=== PATIENT | male | born 1960 | race Caucasian/White ===

== ENCOUNTER 2017-09-18 15:59 | Emergency (ER) | payer OTHER ==
[~2017-09-18] VITALS: Ht 185.4 cm; Wt 136.1 kg
[~2017-09-18 15:59] MED LIST: BACLOFEN20 MG PO; FLO4 PO; KEFLEX500 MG PO; LAC PO; METHADONE HCL5 MG PO; MOTRIN800 MG; OMEPRAZOLE DR20 M1 PO; OXYBUTYNIN5 M1 PO
[2017-09-18 16:11] VITALS: Ht 185.4 cm; Wt 136.1 kg
[2017-09-18 17:27] VITALS: BP 116/42
== END 2017-09-18 17:27 | disposition home or self-care (01) ==
LOC: ED 15:59
DX: S24.102A Unspecified injury at T2-T6 level of thoracic spinal cord, initial encounter (principal); G82.20 Paraplegia, unspecified; G89.29 Other chronic pain; M54.9 Dorsalgia, unspecified; R19.7 Diarrhea, unspecified; X58.XXXA Exposure to other specified factors, initial encounter; Y93.89 Activity, other specified; Y92.89 Other specified places as the place of occurrence of the external cause; Y99.8 Other external cause status
CPT/HCPCS: J1885; J2270; Q0162

== ENCOUNTER 2018-02-17 13:13 | Emergency (ER) | payer OTHER ==
[2018-02-17 16:56] LABS: BASOPHIL % 0.2 % (0-2); PLATELET COUNT 252 x10^3mcL (130-400); RED CELL DISTRIBUTION WIDTH 13.6 % (11.5-14.5)
[2018-02-17 17:05] LABS: CALCIUM 8.1 mg/dL (8.5-10.1); CARBON DIOXIDE 26.2 mmol/L (21-32); CHLORIDE SERUM 101 mmol/L (98-107); CREATININE SERUM 0.9 mg/dL (0.7-1.3); GFR1 > 60 mL/min; GLUCOSE SERUM 94 mg/dL (74-106); POTASSIUM SERUM 3.8 mmol/L (3.5-5.1); SODIUM SERUM 136 mmol/L (136-145)
[2018-02-17 17:11] LABS: ALBUMIN 3.4 g/dL (3.4-5.0); ALKALINE PHOSPHATASE 109 U/L (46-116); ALT/SGPT 30 U/L (16-63); AST/SGOT 23 U/L (15-37); BILIRUBIN TOTAL 0.34 mg/dL (0.20-1.00); TOTAL PROTEIN, SERUM 7.7 g/dL (6.4-8.2)
[2018-02-17 20:13] VITALS: BP 147/82
== END 2018-02-17 20:13 | disposition home or self-care (01) ==
LOC: ED 13:13
PROVIDERS: Emergency Medicine
DX: J10.1 Influenza due to other identified influenza virus with other respiratory manifestations (principal); G82.20 Paraplegia, unspecified; G89.29 Other chronic pain
CPT/HCPCS: 83880; 87804; J7613; J7644; Q0092

== ENCOUNTER 2018-02-25 10:47 | Emergency (ER) | payer OTHER ==
[~2018-02-25] VITALS: Ht 185.4 cm; Wt 124.7 kg
[2018-02-25 10:55] VITALS: Ht 185.4 cm; Wt 124.7 kg
[2018-02-25 13:49] VITALS: BP 123/71
== END 2018-02-25 13:49 | disposition home or self-care (01) ==
LOC: ED 10:47
DX: J40 Bronchitis, not specified as acute or chronic (principal); M54.9 Dorsalgia, unspecified

== ENCOUNTER 2018-07-07 09:09 | Inpatient (IN) | payer OTHER ==
[~2018-07-07] VITALS: Ht 185.4 cm; Wt 113.4 kg
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
[2018-07-07 09:56] LABS: PLATELET COUNT 314 x10^3mcL (130-400); RED CELL DISTRIBUTION WIDTH 14.3 % (11.5-14.5)
[2018-07-07 10:07] LABS: CALCIUM 8.3 mg/dL (8.5-10.1); CARBON DIOXIDE 22.1 mmol/L (21-32); CHLORIDE SERUM 103 mmol/L (98-107); CREATININE SERUM 0.9 mg/dL (0.7-1.3); GFR1 > 60 mL/min; GLUCOSE SERUM 147 mg/dL (74-106); POTASSIUM SERUM 3.8 mmol/L (3.5-5.1); SODIUM SERUM 137 mmol/L (136-145)
[2018-07-07 10:13] LABS: ALBUMIN 3.5 g/dL (3.4-5.0); ALKALINE PHOSPHATASE 113 U/L (46-116); ALT/SGPT 24 U/L (16-63); AST/SGOT 17 U/L (15-37); BILIRUBIN TOTAL 0.5 mg/dL (0.20-1.00); LIPASE 54 IU/L (73-393); TOTAL PROTEIN, SERUM 7.6 g/dL (6.4-8.2)
--- NOTE | 2018-07-07 10:13 | NUR ---
FAMILY AT BEDSIDE
--- NOTE | 2018-07-07 10:16 | NUR ---
PT TAKEN TO CT VIA BAM WITH NAD.
[2018-07-07 11:09] LABS: BAND NEUTROPHIL 18 % (0-10); BASOPHIL 0 % (0-2); MONOCYTE 3 % (0-7); SEGMENTED NEUTROPHILS 74 % (37-75)
[2018-07-07 11:10] LABS: PLATELET MORPHOLOGY GIANT PLATELET SEEN; rbc morphology (normal/abnorm) NORMAL (NORMAL)
--- NOTE | 2018-07-07 12:45 | NUR ---
PT HAD A LARGE AMOUNT OF FOUL LOOSE STOOL. PT CLEANED UP AND PLACED TO POSITION OF COMFORT
--- NOTE | 2018-07-07 13:21 | NUR ---
PT HAD A MEDIUM SIZE LOOSE STOOL WITH FOUL SMELL. PT CLEANED AND PLACED IN POSIITION OF COMFORT.
--- NOTE | 2018-07-07 13:39 | NUR ---
RECEIVED REPORT FROM DAGO PENALOZA IN ED. AWAITING PATIENT ARRIVAL TO FLOOR.
--- NOTE | 2018-07-07 13:42 | NUR ---
REPORT GIVEN TO NACHO PENALOZA ON MS FOR FURTHER CARE OF PT
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
[2018-07-07 14:49] VITALS: BP 82/47
--- NOTE | 2018-07-07 15:43 | NUR ---
SPOKE WITH DR EDEN TO NOTIFY OF PT WBC 20, LACTIC ACID 2.2, BP 82/47, DIARRHEA. REQUESTED LUNDBERG, CDIFF CULTURE, AIR MATTRESS, FNS CONSULT, ISOLATION PRECAUTIONS, TELEMETRY STATUS. DR EAGLE SAID YES TO ALL EXCEPT TELEMETRY STATUS. WILL INITIATE ORDERS.
[2018-07-07 18:12] VITALS: BP 90/48
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
--- NOTE | 2018-07-07 19:52 | NUR ---
REPORT GIVEN TO GLENIS PENALOZA. PT RESTING COMFORTABLY IN BED. IV TO LT HAND IS PATENT AND INFUSING NS @ 80 ML/HR. NO REDNESS OR PAIN. PT ON ROOM AIR. NO C/O SOB AND NO DISTRESS NOTED. LUNDBERG IN PLACE DRAINING DAGO COLORED URINE. ALL QUESTIONS AND CONCERNS ADDRESSED. ALL CARES ENDORSED.
--- NOTE | 2018-07-07 22:00 | NUR ---
APPLIED AIR MATTRESS TO PT BED PER ORDER. PT TOLERATED TRANSFER WELL. NO BM YET. PT AWARE OF NEED FOR STOOL SAMPLE, PT INCONTINENT OF STOOL. WILL CONTINUE TO MONITOR.
[2018-07-07 22:36] VITALS: BP 95/44
--- NOTE | 2018-07-08 05:15 | NUR ---
PT RESTED IN INTERVALS DURING SHIFT, NO ACUTE CHANGES OCCURRING OVERNIGHT. MEDICATED PT X1 WITH NORCO FOR GENERALIZED BODY PAIN. PT TOLERATING ANTIBIOTICS WELL. DENIES N/V/D DURING SHIFT. PT REMAINS AFEBRILE, PT REMAINS WITH LUNDBERG CATH DRAINING DARK DAGO URINE, PT HAS NO HAD A BM TO OBTAIN C. DIFF SAMPLE, WILL PHONE DR. EDEN TO OBTAIN ORDER FOR SUPPOSITORY. IV SITE TO NS @ 80ML/HR. NO REDNESS, SWELLING OR PAIN NOTED. PT REMAINS ON RA, DENIES SOB. ALL COMFORT AND SAFETY MEASURES PROVIDED FOR, CALL LIGHT WITHIN REACH, BED IN LOWEST POSITION, WILL CONTINUE TO MONITOR.
[2018-07-08 05:37] VITALS: BP 89/50
[2018-07-08 06:29] VITALS: BP 99/50
--- NOTE | 2018-07-08 06:49 | NUR ---
[facility]ED [facility] TO PAGED COVERING DR FOR DR. EDEN. DR GILL COVERING , WILL WAIT FOR CALL BACK. PT REQUESTING SUPPOSITORY SINCE HE USUALLY TAKES SUPP EVERY OTHER DAY FOR BM.
--- NOTE | 2018-07-08 07:15 | NUR ---
RECIEVED PT RESTING IN BED COMFORTABLY. A/O X4 WITH NO C/O CALLE OR DIZZINESS. MED SURG PT. LUNGS CTA, RR EQUAL AND UNLABORED. LUNDBERG IN PLACE DRAINING MEDIUM YELLOW URINE. DENIES ANY PAIN OR BURNING AT THIS TIME. PT PARAPLEGIC, ALL SAFETY PRECAUTIONS IN PLACE. SKIN CDI, SALINE LOCK TO LEFT HAND 20 G, INTACT AND PATENT NO REDNESS, RUNNING 80ML/HR NS. TOLERATING WELL. PT REPOSITIONED Q2 HOUR AND PRN. AL;L SAFETY PRECAUTIONS IN PLACE. CALL LIGHT WITHIN REACH. WILL MONITOR. DENIES ANY PAIN AT THIS TIME.
[2018-07-08 07:16] LABS: BASOPHIL % 0.4 % (0-2); PLATELET COUNT 297 x10^3mcL (130-400); RED CELL DISTRIBUTION WIDTH 14.5 % (11.5-14.5)
[2018-07-08 07:48] LABS: ALBUMIN 2.8 g/dL (3.4-5.0); ALKALINE PHOSPHATASE 84 U/L (46-116); ALT/SGPT 20 U/L (16-63); AST/SGOT 15 U/L (15-37); BILIRUBIN TOTAL 0.44 mg/dL (0.20-1.00); CALCIUM 8.1 mg/dL (8.5-10.1); CARBON DIOXIDE 20.4 mmol/L (21-32); CHLORIDE SERUM 106 mmol/L (98-107); CREATININE SERUM 0.8 mg/dL (0.7-1.3); GFR1 > 60 mL/min; GLUCOSE SERUM 96 mg/dL (74-106); MAGNESIUM 2.3 mg/dL (1.8-2.4); POTASSIUM SERUM 3.6 mmol/L (3.5-5.1); SODIUM SERUM 130 mmol/L (136-145); TOTAL PROTEIN, SERUM 6.2 g/dL (6.4-8.2)
--- NOTE | 2018-07-08 07:48 | NUR ---
ENDORSED ALL CARE TO DAYSHIFT NURSE, NO ACUTE DISTRESS NOTED. ALL QUESTIONS AND CONCERNS ADDRESSED, CALL LIGHT WITHIN REACH, BED IN LOWEST POSITION.
[2018-07-08 09:42] VITALS: BP 108/46
[2018-07-08 10:21] VITALS: BP 108/46
--- NOTE | 2018-07-08 10:30 | NUR ---
D/C'D URINARY CATHETER PER DR EDEN. PT STABLE TO DISCHARGE. TOLERATED WELL. NO PAIN OR DISCOMFORT NOTED. EMPTYED 600 ML DARK YELLOW URINE.
--- NOTE | 2018-07-08 10:40 | NUR ---
PT STABLE TO DISCHARGE, ORDER RECIVIED. PT DENIES ANY PAIN AT THIS TIME. NO RESPIRATORY DISTRESS NOTED. FOLWY CATHETER REMOVED WITH NO DISTRESS OR PROBLEMS. EXPLAINED DISCHARGE AND MEDICATION EDUCATION/TEACHING. ALL DISCHARGE FORMS EXPLAINED AND SIGNED BY PT. VERBALIZES UNDERSTANDING. PT VERBALIZES UNDERSTANDING.IV REMOVED WITH CATHETER INTACT, NO REDNESS OR INFLAMMATION NOTED.PT WITING ON TO COME PICK HIM UP.
[2018-07-10 11:28] VITALS: Ht 185.4 cm; Wt 113.4 kg
== END 2018-07-08 11:45 | disposition home or self-care (01) | DRG 872 ==
LOC: ED 09:09 → MU 13:12
PROVIDERS: Emergency Medicine; ADMIT Internal Medicine Pulmonary Disease
DX: A41.9 Sepsis, unspecified organism (principal); N39.0 Urinary tract infection, site not specified; G82.20 Paraplegia, unspecified; E87.2 Acidosis; S24.102S Unspecified injury at T2-T6 level of thoracic spinal cord, sequela; G89.29 Other chronic pain; G71.09 Other specified muscular dystrophies; E66.9 Obesity, unspecified; Z68.32 Body mass index [BMI] 32.0-32.9, adult; Z99.3 Dependence on wheelchair; Z22.322 Carrier or suspected carrier of Methicillin resistant Staphylococcus aureus; V89.2XXS Person injured in unspecified motor-vehicle accident, traffic, sequela
CPT/HCPCS: J0692; J1644; J2543; J7030